=== PATIENT | male | born 1950 | race Caucasian/White ===

== ENCOUNTER 2022-08-24 09:53 | Day surgery (SDC) | payer MEDICARE, OTHER ==
[~2022-08-24] VITALS: Ht 177.8 cm; Wt 95.3 kg
[~2022-08-24 09:53] MED LIST: LISI10TA22 PO; NS 1,000 ML IV ONE; SIMV20TA22 PO
[2022-08-24] MEDS ORDERED: propofoL 200 MG/20 ML VIAL As Ordered ONE (11:19)
[2022-08-24 12:34] VITALS: BP 185/91; TEMP 98.1; O2SAT 96
== END 2022-08-24 12:37 | disposition home or self-care (01) ==
LOC: M OPP 09:53
PROVIDERS: ATTEND Internal Medicine Gastroenterology
DX: Z12.11 Encounter for screening for malignant neoplasm of colon (principal); K64.0 First degree hemorrhoids; Z79.02 Long term (current) use of antithrombotics/antiplatelets; Z79.899 Other long term (current) drug therapy

== ENCOUNTER → 2023-08-28 | Outpatient (CLI) | payer MEDICARE, OTHER ==
[~2023-08-28] MED LIST changes: -NS 1,000 ML IV ONE
== END ==
LOC: M PLAIMG 11:55
PROVIDERS: ATTEND Physician Assistant Medical
DX: R20.2 Paresthesia of skin (principal); M51.36 Other intervertebral disc degeneration, lumbar region